=== PATIENT | female | born 1985 | race Two or more races ===

== ENCOUNTER 2017-02-28 22:04 | Emergency (ER) | payer MEDICAID, OTHER ==
[~2017-02-28] VITALS: Ht 160 cm; Wt 47.6 kg
--- NOTE | 2017-02-28 23:37 | NUR ---
WOKE UP W/ MIDBACK PAIN TODAY, NO FALL, NO TRAUMA, NO N/V, NO HEMATURIA TOOK ADVIL 200MG X 1800 TODAY W/ NO RELIEF. PT AOX3 RR EVEN AND UNLABORED. NO SOB NOTED. NAD NOTED. NO NVD AT THIS TIME. PT GOWNED AND PLACED ON MONITOR WAITING FOR MD MTZ.
--- NOTE | 2017-02-28 23:56 | NUR ---
URINE COLLECTED. SENT TO LAB
[2017-03-01 00:24] LABS: APPEARANCE,URINE CLEAR (CLEAR); BILIRUBIN,URINE NEGATIVE (NEGATIVE); BLOOD, URINE 2+ Ery/uL (NEGATIVE); COLOR,URINE YELLOW (YELLOW); KETONES,URINE NEGATIVE (NEGATIVE); LEUKOCYTE ESTERASE ,URINE NEGATIVE (NEGATIVE); NITRITE, URINE NEGATIVE (NEGATIVE); PH,URINE 7.5 (5.0-8.0); PROTEIN,URINE NEGATIVE (NEGATIVE); UGLUCOSE NEGATIVE (NEGATIVE)
[2017-03-01 00:29] LABS: BACTERIA,URINE Few /HPF (None Seen); SQUAMOUS EPITHELIAL CELL,UR Few /HPF (None Seen); WBC,URINE 0-2 /HPF (0-3)
[2017-03-01] MEDS ORDERED: NAPROXEN 500 MG TABLET PO STA (00:45)
[2017-03-01] MEDS ORDERED: NAPROXEN 250 MG TABLET ONE (00:53)
--- NOTE | 2017-03-01 01:06 | NUR ---
Patient discharged to home in stable condition. Written and verbal after care instructions given. Patient verbalizes understanding of instruction.
[2017-03-01 01:07] VITALS: BP 124/74
== END 2017-03-01 01:08 | disposition home or self-care (01) ==
LOC: ER 22:12
DX: M54.5 Low back pain (principal)
CPT/HCPCS: 81001; 84703; 99284; A4606; Z7610; 81000-TC

== ENCOUNTER 2017-05-09 15:57 | Emergency (ER) | payer MEDICAID, OTHER ==
[~2017-05-09] VITALS: Ht 152.4 cm; Wt 56.2 kg
[2017-05-09 16:16] VITALS: BP 110/59
[2017-05-09 17:37] LABS: APPEARANCE,URINE Clear (CLEAR); BILIRUBIN,URINE Negative (NEGATIVE); BLOOD, URINE Moderate Ery/uL (NEGATIVE); COLOR,URINE Yellow (YELLOW); KETONES,URINE Negative (NEGATIVE); LEUKOCYTE ESTERASE ,URINE Negative (NEGATIVE); NITRITE, URINE Negative (NEGATIVE); PH,URINE 8.5 (5.0-8.0); PROTEIN,URINE Negative (NEGATIVE); UGLUCOSE Negative (NEGATIVE)
--- NOTE | 2017-05-09 17:40 | NUR ---
CALLED LAB. [facility] IS NEG. CALLED RADIOLOGY TO LET THEM KNOW. PT IS WAITING IN THE LOBBY FOR CXR.
[2017-05-09 17:49] LABS: WBC,URINE 0-2 /HPF (0-3)
[2017-05-09 17:50] LABS: BACTERIA,URINE None seen /HPF (None Seen); SQUAMOUS EPITHELIAL CELL,UR Few /HPF (None Seen)
== END 2017-05-09 19:03 | disposition home or self-care (01) ==
LOC: ER 16:00
DX: J20.9 Acute bronchitis, unspecified (principal)
CPT/HCPCS: 71045; 81001; 84703; 99285; A4606; Z7610; 81000-TC

== ENCOUNTER 2019-11-10 16:18 | Inpatient (IN) | payer MEDICAID, OTHER ==
[~2019-11-10] VITALS: Ht 152.4 cm; Wt 53.1 kg
[2019-11-10] MEDS ORDERED: LIDOCAINE VISCOUS 2% UD 15 ML UDC ONE (16:58)
[2019-11-10] MEDS ORDERED: ONDANSETRON 4 MG TAB.RAPDIS ONE (16:59)
[2019-11-10] MEDS ORDERED: MAG HYDROX/AL HYDROX/SIMETH 30 ML UDC ONE (16:59)
[2019-11-10] MEDS ORDERED: ONDANSETRON 4 MG TAB.RAPDIS SL ONE (17:00)
[2019-11-10] MEDS ORDERED: LIDOCAINE VISCOUS 2% UD 15 ML UDC MM ONE (17:00)
[2019-11-10] MEDS ORDERED: MAG HYDROX/AL HYDROX/SIMETH 30 ML UDC PO ONE (17:00)
--- NOTE | 2019-11-10 17:06 | NUR ---
c/o abd pain , diarrhea, chills, fever, body aches, loss of taste x 2 weeks. PT AAOX4, VSS. RR EVEN & UNLABORED. DENIES CP, SOB, DIZZINESS AT THIS TIME. PT SEEN & EVAL'D BY DR. NOEL. WILL CONT TO MONITOR.
[2019-11-10 17:25] LABS: APPEARANCE,URINE SL CLOUDY (CLEAR); BILIRUBIN,URINE NEGATIVE (NEGATIVE); BLOOD, URINE MODERATE Ery/uL (NEGATIVE); COLOR,URINE YELLOW (YELLOW); KETONES,URINE NEGATIVE (NEGATIVE); LEUKOCYTE ESTERASE ,URINE LARGE (NEGATIVE); NITRITE, URINE NEGATIVE (NEGATIVE); PH,URINE 7.5 (5.0-8.0); PROTEIN,URINE NEGATIVE (NEGATIVE); UGLUCOSE NEGATIVE (NEGATIVE); UROBILINOGEN,URINE 0.2 EU/dL (0.2)
[2019-11-10 17:29] LABS: BASOPHILS % (AUTO) 0.4 % (0.0-2.0); EOSINOPHILS % (AUTO) 1.3 % (0.0-6.0); HEMATOCRIT 40 % (33-45); HEMOGLOBIN 13.7 g/dL (11.5-14.8); LYMPHOCYTES # (AUTO) 2.1 /CMM (0.8-4.8); LYMPHOCYTES % (AUTO) 28.8 % (20.0-44.0); MEAN CORPUSCULAR HGB CONC 34 g/dl (31.0-36.0); MEAN CORPUSCULAR VOLUME 105 fL (82-100); MONOCYTES # (AUTO) 0.3 /CMM (0.1-1.30); MONOCYTES % (AUTO) 4.6 % (2.0-12.0); NEUTROPHILS # (AUTO) 4.8 /CMM (1.8-8.9); NEUTROPHILS % (AUTO) 64.9 % (43.0-81.0); PLATELET COUNT (AUTO) 153 /CMM (150-450); RED BLOOD CELL COUNT(AUTO) 3.81 MIL/uL (4.0-5.2); WHITE BLOOD COUNT (AUTO) 7.3 K/uL (4.3-11.0)
[2019-11-10 17:57] LABS: ALBUMIN 3.2 g/dL (3.4-5.0); BILIRUBIN,DIRECT 0.3 mg/dL (0.0-0.2); BILIRUBIN,TOTAL 0.9 mg/dL (0.2-1.0); CREATININE 0.7 mg/dL (0.6-1.3); POTASSIUM 3.1 mmol/L (3.5-5.1); TOTAL PROTEIN, SERUM 7.3 g/dL (6.4-8.2)
[2019-11-10 17:58] LABS: LYMPHOCYTES % (MANUAL) 24 % (16-48); NEUTROPHILS % (MANUAL) 76 (42-76)
--- NOTE | 2019-11-10 18:53 | NUR ---
MOVE SHEET SUBMITTED TO ADMITTING
[2019-11-10] MEDS ORDERED: IV NS 0.9% 1,000 ML BAG IV ONE (19:00)
[2019-11-10 19:09] LABS: THYROID STIMULATING HORMONE 1.565 uIU/mL (0.358-3.74)
[2019-11-10] MEDS ORDERED: ONDANSETRON HCL/PF 4 MG/2 ML VIAL ONE (19:10)
[2019-11-10] MEDS ORDERED: MORPHINE SULFATE INJ 4 MG/ML DISP.SYRIN ONE (19:11)
[2019-11-10] MEDS ORDERED: MORPHINE SULFATE INJ 2 MG/ML DISP.SYRIN IV ONE (19:30)
[2019-11-10] MEDS ORDERED: ONDANSETRON HCL/PF 4 MG/2 ML VIAL IVP ONE (19:30)
[2019-11-10] MEDS ORDERED: ACETAMINOPHEN 325 MG TABLET PO PRN (20:00)
[2019-11-10] MEDS ORDERED: LORAZEPAM INJ 2 MG/ML VIAL IV PRN (20:00)
[2019-11-10] MEDS ORDERED: Z GUARD REMEDY 2 OZ OINT TP PRN (20:00)
[2019-11-10] MEDS ORDERED: ONDANSETRON HCL/PF 4 MG/2 ML VIAL IVP PRN (20:00)
--- NOTE | 2019-11-10 20:02 | NUR ---
COVID NEGATIVE PER LAB
--- NOTE | 2019-11-10 20:48 | NUR ---
BED ASSIGNMENT 304-2
--- NOTE | 2019-11-10 20:52 | NUR ---
REPORT GIVEN TO JOE LUO FOR [facility].
[2019-11-10 21:10] VITALS: BP 142/107
--- NOTE | 2019-11-10 21:30 | NUR ---
MS RN ADMITTING NOTE: Received report from ER nurse, Amairani. Patient was admitted to the unit via gurney. Patient AOx4. Patient is cooperative. Patient is on room air. She is breathing well, no distress noted, no SOB, breathing even and unlabored. Lung sounds clear from all conner. Skin is intact. Noted right AC IV access, 20g. Flushes well, patent, no redness, or infiltration. Patient ambulates with a steady gate. Patient complains of abdominal pain rated 10 on a 0-10 numerical scale. Administered PRN Morphine per MD order. Will continue to monitor.
[2019-11-10] MEDS: IV NS 0.9% 1,000 ML IV PRN (21:52)
[2019-11-10] MEDS: POTASSIUM CL. PREMIX PERIPHER. 50 ML IV SCH ×2 (21:53→23:58)
[2019-11-10] MEDS: MORPHINE SULFATE INJ 2 MG/ML DISP.SYRIN IV PRN (22:25)
--- NOTE | 2019-11-10 22:25 | NUR ---
MS RN NOTE: Patient complains of abdominal pain. Patient rates pain 10 on a 0-10 scale and describes it as burning. Administered PRN Morphine per MD order. Will continue to monitor.
--- NOTE | 2019-11-10 22:55 | NUR ---
MS RN NOTE: Reassessed patient pain. Patient rated pain 5 on a 0-10 numerical scale. Patient stated PRN Morphine was effective. Will continue to monitor.
[2019-11-10 23:10] VITALS: BP 142/107
--- NOTE | 2019-11-11 00:45 | NUR ---
MS RN NOTE: Floated to LILLIE. Endorsed patient and gave report to Bridgett
--- NOTE | 2019-11-11 00:50 | NUR ---
MS RN NOTES RECEIVED REPORT FROM JOE LUO FOR [facility].
[2019-11-11] MEDS: POTASSIUM CL. PREMIX PERIPHER. 50 ML IV SCH ×2 (01:50→03:32)
[2019-11-11] MEDS: MORPHINE SULFATE INJ 2 MG/ML DISP.SYRIN IV PRN ×5 (02:05→18:48)
--- NOTE | 2019-11-11 06:27 | NUR ---
MS RN CLOSE NOTES PATIENT IS LAYING IN BED. A/O X4. ON RA, NO SOB/ ACUTE RESPIRATORY DISTRESS NOTED. IV IN R AC #20G IS PATENT AND INTACT RUNNING NS @ 125MLS/HR. ALL DUE MEDICATIONS GIVEN. PATIENT IS ABLE TO AMBULATE. BED IS IN LOWEST LOCKED POSITION WITH SIDE RAILS UP X2, SEMI FOWLERS. CALL LIGHT IS WITHIN REACH. WILL ENDORSE TO AM NURSE.
[2019-11-11 06:56] LABS: BASOPHILS % (AUTO) 0.3 % (0.0-2.0); EOSINOPHILS % (AUTO) 1.9 % (0.0-6.0); HEMATOCRIT 35 % (33-45); HEMOGLOBIN 12.3 g/dL (11.5-14.8); LYMPHOCYTES # (AUTO) 1.5 /CMM (0.8-4.8); LYMPHOCYTES % (AUTO) 17.8 % (20.0-44.0); MEAN CORPUSCULAR HGB CONC 35 g/dl (31.0-36.0); MEAN CORPUSCULAR VOLUME 106 fL (82-100); MONOCYTES # (AUTO) 0.3 /CMM (0.1-1.30); NEUTROPHILS # (AUTO) 6.6 /CMM (1.8-8.9); PLATELET COUNT (AUTO) 115 /CMM (150-450); RED BLOOD CELL COUNT(AUTO) 3.31 MIL/uL (4.0-5.2); WHITE BLOOD COUNT (AUTO) 8.6 K/uL (4.3-11.0)
[2019-11-11 07:26] LABS: CALCIUM, SERUM 7.6 mg/dL (8.5-10.1); CREATININE 0.6 mg/dL (0.6-1.3); MAGNESIUM 1.5 mg/dL (1.8-2.4); PHOSPHORUS 3.3 mg/dL (2.5-4.9); POTASSIUM 3.5 mmol/L (3.5-5.1)
--- NOTE | 2019-11-11 07:30 | NUR ---
RN OPENING NOTES RECEIVED PATIENT IN BED. ALERT AND ORIENTED X4. NO CARDIAC OR RESPIRATORY DISTRESS NOTED. NO SOB NOTED. SATURATING WELL ON ROOM AIR, BREATHING EVEN AND UNLABORED. IV ACCESS NOTED IN R AC #20G IS PATENT AND INTACT RUNNING NS @ 125MLS/HR. PATIENT IS ABLE TO AMBULATE WITH STEADY GAIT. SAFETY PRECAUTIONS IN PLACE. BED IS IN LOWEST LOCKED POSITION WITH SIDE RAILS UP X2, SEMI FOWLERS. CALL LIGHT IS WITHIN REACH. WILL CONT TO MONITOR.
[2019-11-11 08:00] VITALS: BP 124/84
[2019-11-11] MEDS ORDERED: PANTOPRAZOLE 40 MG VIAL IV SCH (09:00)
[2019-11-11] MEDS: Magnesium 1GM/D5W 100ML PREMIX 100 ML IV SCH ×2 (11:19→12:31)
[2019-11-11] MEDS: IV NS 0.9% 1,000 ML IV PRN (13:17)
[2019-11-11 16:00] VITALS: BP 120/86
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
--- NOTE | 2019-11-11 19:30 | NUR ---
RN CLOSING NOTES PATIENT IN BED. ALERT AND ORIENTED X4. NO CARDIAC OR RESPIRATORY DISTRESS NOTED. NO SOB NOTED. SATURATING WELL ON ROOM AIR, BREATHING EVEN AND UNLABORED. IV ACCESS NOTED IN R AC #20G IS PATENT AND INTACT RUNNING NS @ 125MLS/HR. PATIENT IS ABLE TO AMBULATE WITH STEADY GAIT. MANAGED PTS PAIN THROUGHOUT THE SHIFT. STARTED ON CLEAR LIQUID DIET TODAY. TOLERATED WELL. NO REPORTS OF NAUSEA/VOMITING. SAFETY PRECAUTIONS IN PLACE. BED IS IN LOWEST LOCKED POSITION WITH SIDE RAILS UP X2, SEMI FOWLERS. CALL LIGHT IS WITHIN REACH. WILL CONT TO MONITOR.
--- NOTE | 2019-11-11 19:38 | NUR ---
MS RN OPENING NOTES PATIENT RECEIVED RESTING IN BED COMFORTABLY; A/OX4, BREATHING EVEN AND UNLABORED; NO SOB NOTED; TOLERATING ROOM AIR WELL; ABLE TO MAKE NEEDS KNOWN; R AC # 20 INTACT AND PATENT, TOLERATING IVF WELL; NO S/S OF REDNESS OR INFILTRATION NOTED; PER AM SHIFT, PATIENT WOULD LIKE TO GO HOME BECAUSE SHE NEEDS TO FEED HER DOG; PER PATIENT, SHE IS ABLE TO TOLERATE CLEAR LIQUIDS WELL, BUT TAKES TIME EATING; PATIENT VERBALIZED SHE SPOKE TO AN MD WHO SAID SHE WILL BE ABLE TO GO HOME IF SHE IS TOLERATING HER FOOD WELL; AWAITING MD ORDERS, NO DISCHARGE ORDERS NOTED AT THIS TIME; PATIENT AMBULATORY; NO DISTRESS NOTED AT THIS TIME; SAFETY PRECAUTIONS IMPLEMENTED; BED LOCKED IN LOW POSITION; SIDE RAILSX2; CALL LIGHT WITHIN EASY REACH; WILL CONT TO MONITOR
[2019-11-11 20:00] VITALS: BP 130/95
--- NOTE | 2019-11-11 20:00 | NUR ---
MS RN NOTES PATIENT WOULD LIKE TO LEAVE AMA; DID NOT WANT TO WAIT FOR MD ORDERS FOR DISCHARGE; PER PATIENT SHE IS IN A PRATT TO GET HOME SHE HAS A DOG THAT NO ONE HAS FED; PATIENT SIGNED AMA PAPERS; PATIENT PACKED HER BELONGINGS QUICKLY; PATIENT DID NOT WANT TO SIGN BELONGINGS LIST; PATIENT REPORTED SHE HAD ALL HER THINGS; PER PATIENT, SHE HAD GIVEN PREVIOUS NURSE BOTTLES OF MEDICATION; PATIENT WAS INFORMED THEY WERE BROUGHT TO PHARMACY; PATIENT VERBALIZED, " IT IS OKAY, IT IS FINE, I JUST REALLY NEED TO GO HOME". PATIENT IV SITE REMOVED; IV TIP INTACT; ID BAND REMOVED; MD AWARE; CHARGE NURSE AWARE; PATIENT LEFT UNIT ON HER OWN (@ 1999) , COULD NOT WAIT FOR ANYONE TO ACCOMPANY HER DOWNSTAIRS; CHARGE NURSE AWARE; WILL FILL OUT INCIDENT REPORT;
== END 2019-11-11 20:00 | disposition left against medical advice (07) | DRG 282 ==
LOC: ER 16:18 → MED 20:50
PROVIDERS: ADMIT Nurse Practitioner Acute Care; ATTEND Hospitalist
DX: K85.90 Acute pancreatitis without necrosis or infection, unspecified (principal); F17.210 Nicotine dependence, cigarettes, uncomplicated; E87.6 Hypokalemia; E78.1 Pure hyperglyceridemia; K76.0 Fatty (change of) liver, not elsewhere classified; E44.1 Mild protein-calorie malnutrition; E83.42 Hypomagnesemia; E88.09 Other disorders of plasma-protein metabolism, not elsewhere classified; Z68.22 Body mass index [BMI] 22.0-22.9, adult
CPT/HCPCS: 36415; 76705-TC; 80048-TC; 80061-TC; 80076-TC; 81000-TC; 83690-TC; 83735-TC; 84100-TC; 84443-TC; 84703-TC; 85025-TC; 87081-TC; C9113; G0378; J2270; J2405; J3475; J3480; J7030; J7050; Q0162

== ENCOUNTER 2020-08-03 22:07 | Emergency (ER) | payer MEDICAID ==
[~2020-08-03] VITALS: Ht 152.4 cm; Wt 47.2 kg
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
--- NOTE | 2020-08-03 22:52 | NUR ---
URINE COLLECTED AND SENT TO LAB
[2020-08-03] MEDS ORDERED: HYDROCODONE/APAP 10/325MG TABLET PO ONE (23:00)
[2020-08-03] MEDS ORDERED: HYDROCODONE/APAP 10/325MG TABLET ONE (23:05)
--- NOTE | 2020-08-03 23:29 | NUR ---
PATIENT RETUNED FROM CT SCAN
[2020-08-03] MEDS ORDERED: TRAM50TA2 PO (23:51)
[2020-08-04 00:08] VITALS: BP 136/68
--- NOTE | 2020-08-04 00:09 | NUR ---
Patient discharged to home in stable condition. Rx and Written and verbal after care instructions given. Patient verbalizes understanding of instruction. ambulatory with a steady gait.
== END 2020-08-04 00:09 | disposition home or self-care (01) ==
LOC: ER 22:10
DX: S30.1XXA Contusion of abdominal wall, initial encounter (principal); F17.200 Nicotine dependence, unspecified, uncomplicated; W22.8XXA Striking against or struck by other objects, initial encounter; Y93.39 Activity, other involving climbing, rappelling and jumping off; Y92.89 Other specified places as the place of occurrence of the external cause; Y99.8 Other external cause status
CPT/HCPCS: 84703-TC

== ENCOUNTER 2020-08-10 12:36 | Emergency (ER) | payer MEDICAID ==
[~2020-08-10] VITALS: Ht 152.4 cm; Wt 47.6 kg
[~2020-08-10 12:36] MED LIST: TRAM50TA2 PO
--- NOTE | 2020-08-10 12:50 | NUR ---
c/o abd pain since last week 10/10 pain scale, +nausea vomiting. Patient a/ox4, breathing even and unlabored. No sob noted. Dr. Bowman at bedside for eval.
[2020-08-10 12:57] LABS: EOSINOPHILS % (AUTO) 7.1 % (0.0-6.0); HEMATOCRIT 36 % (33-45); HEMOGLOBIN 12.6 g/dL (11.5-14.8); LYMPHOCYTES # (AUTO) 1.6 /CMM (0.8-4.8); MEAN CORPUSCULAR HGB CONC 35 g/dl (31.0-36.0); MEAN CORPUSCULAR VOLUME 101 fL (82-100); MONOCYTES # (AUTO) 0.3 /CMM (0.1-1.30); MONOCYTES % (AUTO) 7.5 % (2.0-12.0); NEUTROPHILS # (AUTO) 2.1 /CMM (1.8-8.9); NEUTROPHILS % (AUTO) 47.4 % (43.0-81.0); PLATELET COUNT (AUTO) 283 /CMM (150-450); RED BLOOD CELL COUNT(AUTO) 3.61 MIL/uL (4.0-5.2); WHITE BLOOD COUNT (AUTO) 4.4 K/uL (4.3-11.0)
--- NOTE | 2020-08-10 13:00 | NUR ---
IV LINE ESTABLISHED, BLOOD DRAWN AND SENT TO LAB.
[2020-08-10 13:10] LABS: ALBUMIN 3.7 g/dL (3.4-5.0); BILIRUBIN,DIRECT 0.2 mg/dL (0.0-0.2); BILIRUBIN,TOTAL 0.6 mg/dL (0.2-1.0); CREATININE 0.7 mg/dL (0.6-1.3); POTASSIUM 3.8 mmol/L (3.5-5.1); TOTAL PROTEIN, SERUM 8.4 g/dL (6.4-8.2)
[2020-08-10] MEDS ORDERED: IV NS 0.9% 250 ML IV ONE (13:31)
[2020-08-10] MEDS ORDERED: IOHEXOL-300 100 ML VIAL IV ONE (13:31)
--- NOTE | 2020-08-10 13:35 | NUR ---
PATIENT TAKEN TO CT.
--- NOTE | 2020-08-10 14:04 | NUR ---
PATIENT CAME BACK FROM CT.
--- NOTE | 2020-08-10 14:19 | NUR ---
PATIENT A/OX4, AMBULATORY WITH STEADY GAIT. NO DISTRESS NOTED. IV removed. Catheter intact and site benign. Pressure and 4x4 applied to site. No bleeding noted.Patient discharged to home in stable condition. Written and verbal after care instructions given. Patient verbalizes understanding of instruction.
[2020-08-10 14:20] VITALS: BP 130/87
== END 2020-08-10 14:20 | disposition home or self-care (01) ==
LOC: ER 12:39
DX: S30.1XXA Contusion of abdominal wall, initial encounter (principal); F17.200 Nicotine dependence, unspecified, uncomplicated; X58.XXXA Exposure to other specified factors, initial encounter; Y93.89 Activity, other specified; Y92.89 Other specified places as the place of occurrence of the external cause; Y99.8 Other external cause status
CPT/HCPCS: 36415; 74177; 80048; 80076; 85025; 85730; 99285; J7050; Q9967

== ENCOUNTER 2020-10-15 23:13 | Emergency (ER) | payer MEDICAID ==
[~2020-10-15] VITALS: Ht 152.4 cm; Wt 47.6 kg
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
--- NOTE | 2020-10-16 | NUR ---
Md at bedside for pelvic exam
--- NOTE | 2020-10-16 00:10 | NUR ---
vaginal swabs sent to lab
--- NOTE | 2020-10-16 00:51 | NUR ---
urine sent to lab
[2020-10-16 01:02] LABS: BILIRUBIN,URINE NEGATIVE (NEGATIVE); COLOR,URINE YELLOW (YELLOW); LEUKOCYTE ESTERASE ,URINE NEGATIVE (NEGATIVE); NITRITE, URINE NEGATIVE (NEGATIVE); PH,URINE 8.5 (5.0-8.0); PROTEIN,URINE TRACE mg/dl (NEGATIVE); UGLUCOSE NEGATIVE (NEGATIVE)
[2020-10-16 01:30] LABS: BACTERIA,URINE None seen /HPF (None Seen); RBC,URINE 0-2 /HPF (0-2); SQUAMOUS EPITHELIAL CELL,UR None Seen /HPF (None Seen); WBC,URINE 0-2 /HPF (0-3)
--- NOTE | 2020-10-16 01:30 | NUR ---
f/u with lab, 3-5 min for urine result
--- NOTE | 2020-10-16 01:36 | NUR ---
Patient discharged to home in stable condition. Written and verbal after care instructions given. Patient verbalizes understanding of instruction. Pt ambulatory with a steady gait
[2020-10-16 02:00] VITALS: BP 115/85
== END 2020-10-16 01:36 | disposition home or self-care (01) ==
LOC: ER 23:24
DX: S30.1XXA Contusion of abdominal wall, initial encounter (principal); N89.8 Other specified noninflammatory disorders of vagina; F17.200 Nicotine dependence, unspecified, uncomplicated; X58.XXXA Exposure to other specified factors, initial encounter; Y93.89 Activity, other specified; Y92.89 Other specified places as the place of occurrence of the external cause; Y99.8 Other external cause status
CPT/HCPCS: 81001; 84703-TC; 87070-TC; 87210-TC; 87491; 87591

== ENCOUNTER 2021-04-10 10:44 | Emergency (ER) | payer MEDICAID ==
[~2021-04-10] VITALS: Ht 152.4 cm; Wt 46.7 kg
[~2021-04-10 10:44] MED LIST changes: +CEPH500C2 PO; +DIPH25CA83 PO; +PRED50TA PO; +SULF1TAB48 PO
[2021-04-10] MEDS ORDERED: CEFTRIAXONE 1 G VIAL IM ONE (13:00)
[2021-04-10] MEDS ORDERED: CEFTRIAXONE 1 G VIAL ONE (13:00)
[2021-04-10] MEDS ORDERED: PENICILLIN G BENZATHINE 2.4 MMU/4 ML ML IM ONE ×2 (13:00→13:01)
[2021-04-10] MEDS ORDERED: LIDOCAINE 1% INJ 50 ML MDV IJ ONE (13:04)
[2021-04-10] MEDS ORDERED: LIDOCAINE /MPF 1% VIAL 5 ML VIAL ONE (13:06)
[2021-04-10 14:23] VITALS: BP 126/84
[2021-04-10] MEDS ORDERED: NEOM10DR11 LEFT EAR (14:26)
[2021-04-10] MEDS ORDERED: DOXY100C2 PO (14:26)
--- NOTE | 2021-04-10 14:29 | NUR ---
Patient discharged to home in stable condition. Written and verbal after care instructions given. Patient verbalizes understanding of instruction.
== END 2021-04-10 14:36 | disposition home or self-care (01) ==
LOC: ER 10:45
DX: H60.92 Unspecified otitis externa, left ear (principal); R21 Rash and other nonspecific skin eruption; A64 Unspecified sexually transmitted disease; F17.290 Nicotine dependence, other tobacco product, uncomplicated; Z79.899 Other long term (current) drug therapy
CPT/HCPCS: 36415; 86592; 87491; 87591; 96372 ×2; 99284; J0558; J0696; J3490